=== PATIENT | male | born 1985 | race Caucasian/White ===

== ENCOUNTER 2020-04-12 09:15 | Outpatient (CLI) | payer BC, SELFPAY ==
--- NOTE | 2020-04-12 09:22 | MR_ITS ---
WS: [id number] MRI LUMBAR SPINE NONCONTRAST TECHNIQUE: Sagittal T1, T2 and STIR imaging. Axial T1 and T2 imaging. CLINICAL INFORMATION: CHRONIC MIDLINE LOW BACK PAIN W/O SCIATICA COMPARISON: None. FINDINGS: Mild lumbar curve. No acute compression. Mild disc bulging L4-L5 and L5-S1. Small annular fissure L5- S1. L1-L2: Normal. L2-L3: No significant disc bulging. Mild facet arthropathy. Spinal canal and foramen are patent. L3-L4: Mild annular bulging with slight effacement of ventral thecal sac. Small right proximal forami nal protrusion with mild right and no significant left foraminal narrowing. Moderate facet arthropath y. L4-L5: Mild disc bulging with broad-based central disc protrusion. Moderate central canal stenosis. I mpingement traversing L5 nerve roots. Mild right and no significant left foraminal narrowing. Mild/mo derate facet arthropathy. L5-S1: Mild disc bulging with a small central disc protrusion. Tiny annular tear. Slight contact of t he traversing S1 nerve roots bilaterally. Foramen are patent. Mild facet arthropathy. Visualized pelvic bony structures: Normal. Paravertebral soft tissues: Normal. MR/MR lumbar spine wo con* [id number] IMPRESSION: 1. Mild lumbar curve. No acute compression. 2. Broad-based central disc protrusion L4-5 with moderate central canal stenos is and impingement traversing L5 nerve roots bilaterally. Mild right foraminal narrowing. 3. Tiny central disc protrusion L5-S1 with a tiny annular tear. Slight contact of the right greater than left S1 nerve roots. 4. Mild right L3-4 foraminal narrowing. 5. Mild to moderate facet arthropathy L3-L5.
== END 2020-04-12 09:16 | disposition home or self-care (01) ==
PROVIDERS: PCP Registered Nurse; Visit Provider Registered Nurse
DX: G89.29 Other chronic pain (principal); M47.816 Spondylosis without myelopathy or radiculopathy, lumbar region; M51.27 Other intervertebral disc displacement, lumbosacral region; M51.26 Other intervertebral disc displacement, lumbar region
CPT/HCPCS: 72148

== ENCOUNTER → 2020-04-27 14:11 | Outpatient (BNVA) | payer BC, SELFPAY | PROVIDERS: PCP Registered Nurse; Referring Provider Registered Nurse; Visit Provider Orthopaedic Surgery | DX: M54.9 Dorsalgia, unspecified (principal) | CPT/HCPCS: 72110 ==

== ENCOUNTER → 2020-05-12 09:12 | Outpatient (BNVA) | payer BC, SELFPAY | PROVIDERS: PCP Registered Nurse; Visit Provider Anesthesiology Pain Medicine | DX: M54.41 Lumbago with sciatica, right side (principal); M47.816 Spondylosis without myelopathy or radiculopathy, lumbar region; M54.16 Radiculopathy, lumbar region; M54.9 Dorsalgia, unspecified; M51.9 Unspecified thoracic, thoracolumbar and lumbosacral intervertebral disc disorder | CPT/HCPCS: 99205 ==

== ENCOUNTER → 2020-05-22 13:38 | Outpatient (BNVA) | payer BC, SELFPAY | PROVIDERS: PCP Registered Nurse; Visit Provider Anesthesiology Pain Medicine | DX: M54.16 Radiculopathy, lumbar region (principal); M54.9 Dorsalgia, unspecified; F17.210 Nicotine dependence, cigarettes, uncomplicated | CPT/HCPCS: 64483; 64484; J1100; J3490 ==

== ENCOUNTER → 2020-06-05 13:13 | Outpatient (BNVA) | payer BC, SELFPAY | PROVIDERS: PCP Registered Nurse; Visit Provider Anesthesiology Pain Medicine | DX: M54.16 Radiculopathy, lumbar region (principal); M54.9 Dorsalgia, unspecified; F17.210 Nicotine dependence, cigarettes, uncomplicated | CPT/HCPCS: 64483; 64484; J1100; J3490 ==

== ENCOUNTER → 2020-06-20 10:26 | Outpatient (BNVA) | payer BC, SELFPAY | PROVIDERS: PCP Registered Nurse; Visit Provider Anesthesiology Pain Medicine | DX: M54.9 Dorsalgia, unspecified (principal); M51.9 Unspecified thoracic, thoracolumbar and lumbosacral intervertebral disc disorder; M47.816 Spondylosis without myelopathy or radiculopathy, lumbar region; M54.16 Radiculopathy, lumbar region; M79.604 Pain in right leg; F17.210 Nicotine dependence, cigarettes, uncomplicated | CPT/HCPCS: 99214 ==

== ENCOUNTER → 2020-07-03 12:54 | Outpatient (BNVA) | payer BC, SELFPAY | PROVIDERS: PCP Registered Nurse; Visit Provider Anesthesiology Pain Medicine | DX: M47.816 Spondylosis without myelopathy or radiculopathy, lumbar region (principal); M54.9 Dorsalgia, unspecified; F17.210 Nicotine dependence, cigarettes, uncomplicated | CPT/HCPCS: 64493; 64494; 64495; J1030; J3490 ==

== ENCOUNTER → 2020-07-13 13:08 | Outpatient (BNVA) | payer BC, SELFPAY | PROVIDERS: PCP Registered Nurse; Visit Provider Orthopaedic Surgery | DX: M47.816 Spondylosis without myelopathy or radiculopathy, lumbar region (principal); M51.9 Unspecified thoracic, thoracolumbar and lumbosacral intervertebral disc disorder; M54.16 Radiculopathy, lumbar region | CPT/HCPCS: 87635 ==

== ENCOUNTER → 2020-07-17 11:20 | Outpatient (BNVA) | payer BC, SELFPAY | PROVIDERS: PCP Registered Nurse; Visit Provider Anesthesiology Pain Medicine | DX: M54.9 Dorsalgia, unspecified (principal); M51.9 Unspecified thoracic, thoracolumbar and lumbosacral intervertebral disc disorder; M47.816 Spondylosis without myelopathy or radiculopathy, lumbar region; M54.16 Radiculopathy, lumbar region; M79.604 Pain in right leg; F17.210 Nicotine dependence, cigarettes, uncomplicated | CPT/HCPCS: 99214 ==

== ENCOUNTER 2020-07-19 05:50 | Day surgery (SDC) | payer BC, SELFPAY ==
[2020-07-18 15:15] VITALS: BMI 29.2
[2020-07-19] VITALS (7 sets, daily range): BP systolic 116–134; BP diastolic 69–90; PULSE 52–75; RESP 16–20; TEMP 36.2–36.7; O2SAT 94–100
--- NOTE | 2020-07-19 | SCC_ITS ---
Procedure Done: Right L4/5 Laminectomy with partial facetectomy 14.6 seconds of fluoroscopic guidance, for a cumulative dose of 639 mGy, was provided to Dr. Boggs by the radiology department. C-arm images of the lumbar spine were saved for the patient's permanent record. [facility]
[2020-07-19] MEDS: sodium chloride 0.9% 1,000 ML 30 ML IV (06:30)
--- NOTE | 2020-07-19 06:39 | W.PM.OPSUD ---
Surgery/Procedure H&P Update DATE OF PROCEDURE: July 19, 2020 DATE H&P PERFORMED: 06/22/20 H&P UPDATE INFORMATION: I have reviewed H&P completed within last 30 days, I have examined patient prior to procedure and No changes to prior documentation PREOP DIAGNOSIS: lumbar stenosis PLANNED PROCEDURE: Operation Date: 07/19/20 07:00 Proposed Procedures p lumbar decompresssion right L4/5 m54.6 m47.816 [id number](Bilateral) - Efren Boggs DO
--- NOTE | 2020-07-19 06:56 | ANES.PREANE2 ---
Pre-Anesthetic Assessment Pre-Anesthetic Assessment: Height/Weight: Height 1.8 m Weight 95.254 kg Temp Pulse Resp BP Pulse Ox 98.1 F 75 16 134/77 97 07/19/20 06:07 07/19/20 06:07 07/19/20 06:07 07/19/20 06:07 07/19/20 06:07 Preop Diagnosis: lumbar stenosis Proposed Procedure: Operation Date: 07/19/20 07:00 Proposed Procedures p lumbar decompresssion right L4/5 m54.6 m47.816 [id number](Bilateral) - Efren Sheldon Flakita, DO Was Beta Yossi taken within 24 hours: N/A Was Clonidine taken within 24 hours: N/A Last intake: Intake Last Liquid Date 07/18/20 Last Liquid Time 20:00 Last Solid Date 07/18/20 Last Solid Time 17:00 Social: Social History: No alcohol and No tobacco Exam: Pre-Anes Outpt Exam: alert, oriented x 3, clear to auscultation bilaterally and regular rate & rhythm Airway: Submandibular: WNL Cervical ROM: WNL MP: 2 Dentition: Full History/ROS: No significant history except as noted Metabolic: Comments: Obese Anesthetic Plan: ASA status: 2 Anesthesia: General Risk of > 500 ml blood loss (7ml/kg in children): No Meds/Allergies Current Medications: Current Medications Generic Name Dose Route Start Last Admin Trade Name Freq PRN Reason Stop Dose Admin Sodium Chloride 1,000 mls @ 30 ml s/hr 07/19/20 06:00 07/19/20 06:30 Sodium Chloride 0.9% IV 07/20/20 05:59 30 mls/hr .Q24H CONG Administration PFSH Anesthesia PFSH: Social History Smoking and tobacco status: current some day smoker cigarettes Alcohol intake: current Alcohol intake frequency: holidays/special occasions only History of recent travel: No Data Anesthesia Cardiac Studies: No Data to Display
--- NOTE | 2020-07-19 07:48 | PM.OP ---
Operative Report Date of procedure: July 19, 2020 Pre-op Diagnosis: lumbar stenosis L4/5 Right Post-op diagnosis: same Procedure Done: Right L4/5 Laminectomy with partial facetectomy Surgeon: Efren Bogsg Anesthesia: General Estimated blood loss (mL): 5 Condition: stable Disposition: PACU Procedure: Right L4/5 laminectomy with partial facetectomy Patient is brought to the operative suite. After undergoing anesthesia they are placed in the supine position. All areas of impingement are well padded. Patient is then prepped and draped in the normal sterile fashion. A skin incision is made over the L4/5 level. This is confirmed under c-arm guidance. A series of dilators are passed and the tubular retractor is docked on the L4 lamina. A bovie is used to clear the soft tissue off the lamina and the L 4/5 facet joint. A high speed fabian is then used to perform the laminectomy and take down the medial aspect of the L 4/5 facet joint. A kerrison rongeure was then used to take down the remaining lamina and smooth the edge of the laminectomy up to the point where the ligamentum flavum attaches. Attention was then brought to the medial aspect of the facet joint. The remaining medial aspect of the superior and inferior aspect of the facet joint were taken down with the kerrison from the pedicle of L4 to L 5. The facet joint had significant hypertrophy. Attention was then brought to the Ligamentum Flavum. The ligament was taken down from the lamina of L4 to L5 and out medially to the remaining facet joint. The ligament was thick. The dura was then exposed. The dura was in good repair. The L4 nerve was then traced with a curette out the L4/5 foramen and found to be adequately decompressed. The L5 nerve was traced with a curette around the L5 pedicle. The lateral recess was opened with a kerrison helping to further decompress the L5 nerve. Wound is then irrigated copiously with saline and surgiflo is used to stop any bleeding. The tubular retractor is removed and the wound is closed with vicryl and monocryl suture. Glue is then used to protect the wound. A sterile dressing is then placed. Patient was then placed in the supine position and transferred to the PACU in stable condition.
--- NOTE | 2020-07-19 09:37 | XR_ITS ---
WS: [id number] Lumbar spine, C-arm fluoroscopy view, 07/19/2020 Clinical Data: LUMBAR DECOMPRESSION L4/5 Comparison: Lumbar spine, 04/27/2020. Findings: Dr. Boggs performed a lumbar decompression at L4-L5. XR/XR lumbar spine 1V [id number] Impression: L4-L5 lumbar decompression.
--- NOTE | 2020-07-19 13:33 | ANE.PACU2 ---
Inpatient post-anesthesia follow up: Airway intact: Yes Vital signs: Temperature 98 F Pulse Rate 52 Respiratory Rate 16 Blood Pressure 131/90 Pulse Oximetry 97 Oxygen Delivery Me thod Room Air Oxygen Flow Rate Fraction of Inspir ed Oxygen Hydration adequate: Yes Nausea and vomiting: No Pain level: 2 Mental status: Baseline
== END 2020-07-19 08:55 | disposition home or self-care (01) ==
PROVIDERS: PCP Registered Nurse; Visit Provider Orthopaedic Surgery
PROC: (CPT 63005; principal; 2020-07-19 07:00)
DX: M48.061 Spinal stenosis, lumbar region without neurogenic claudication (principal); E66.9 Obesity, unspecified; Z68.29 Body mass index [BMI] 29.0-29.9, adult; F17.210 Nicotine dependence, cigarettes, uncomplicated
CPT/HCPCS: 63047; 72020; 76000; J0690; J1100; J2405; J2704; J2710; J3010; J3490; J7030